=== PATIENT | male | born 1975 | race Caucasian/White ===

== ENCOUNTER 2016-04-27 17:35 | Inpatient (IN) | payer MEDICAID ==
[~2016-04-27] VITALS: Ht 190.5 cm; Wt 77.5 kg
[2016-04-27 19:26] LABS: Basophils # (auto) 0.1 uL; Basophils % (auto) 0.8 % (0.0-2.0); Eosinophils # (auto) 0.6 uL; Eosinophils % (auto) 4.8 % (0.0-7.0); Hematocrit 45.5 % (41.0-53.0); Hemoglobin 14.8 g/dL (13.5-17.5); Lymphocytes # (auto) 2.2 uL; Lymphocytes % (auto) 18.6 % (10.0-50.0); Mean Corpuscular Hemoglobin 28.3 pg (28.0-32.0); Mean Corpuscular Hgb Conc. 32.6 g/dL (32.0-36.0); Mean Corpuscular Volume 86.6 fL (80.0-100.0); Mean Platelet Volume 8.3 fL (7.4-10.4); Monocytes % (auto) 8.5 % (0.0-12.0); Neutrophils # (auto) 8.1 uL; Neutrophils % (auto) 67.3 % (37.0-80.0); Platelet Count (auto) 380 10^3/uL (140-450); Red Cell Distribution Width 14.4 % (11.6-16.0)
[2016-04-27 19:47] LABS: Albumin 3.1 g/dL (3.4-5.0); BUN/Creatinine Ratio 10.9; Calcium 8.6 mg/dL (8.5-10.1); Potassium 3.7 mmol/L (3.5-5.1)
[2016-04-27 19:50] LABS: Bilirubin, Total 0.5 mg/dL (0.2-1.0); Total Protein 7.1 g/dL (6.4-8.2)
[2016-04-27] MEDS ORDERED: ONDANSETRON HCL 4 MG/2 ML VIAL IV ONE (21:15)
[2016-04-27] MEDS ORDERED: MORPHINE SULFATE 4 MG/ML SYRG IV ONE (21:15)
[2016-04-27] MEDS: LORazepam 2MG/ML-1ML VIAL IV ONE ×2 (21:15→21:31)
[2016-04-27] MEDS ORDERED: cefTRIAXone 1GM/50ML D5W 50 ML IV ONE (23:45)
[2016-04-27] MEDS ORDERED: metroNIDAZOLE 500 MG TAB PO ONE (23:45)
[2016-04-28] VITALS (8 sets, daily range): BP systolic 98–115; BP diastolic 52–71
[2016-04-28] MEDS ORDERED: SODIUM CHLORIDE 0.9% 1,000 ML IV ONE (00:30)
[2016-04-28] MEDS ORDERED: LOPERAMIDE HCL 2 MG CAP PO ONE (00:30)
[2016-04-28] MEDS ORDERED: LOPERAMIDE HCL 2 MG CAP PO PRN (00:30)
[2016-04-28 00:54] LABS: Urine Blood Negative /uL (Negative); Urine Color Yellow (Yellow); Urine Glucose Normal (Normal); Urine Hyaline Cast MANY /lpf (0 - 2); Urine Ketone Negative (Negative); Urine Mucus FEW (None Seen); Urine Nitrite Negative (Negative); Urine RBC 1 /hpf (0 - 3); Urine Squamous Epithelial Cell FEW /hpf (<5); Urine Urobilinogen Normal (Negative)
[2016-04-28 01:33] LABS: Urine Bilirubin POSITIVE (Negative)
[2016-04-28] MEDS: metroNIDAZOLE 500MG/100ML 100 ML IV SCH ×3 (06:52→17:29)
[2016-04-28] MEDS: MORPHINE SULFATE 4 MG/ML SYRG IV PRN ×4 (07:06→21:50)
[2016-04-28] MEDS ORDERED: FAMOTIDINE 20 MG TAB PO SCH (10:00)
[2016-04-28] MEDS ORDERED: NOR5T PO (19:31)
[2016-04-28] MEDS: PANTOPRAZOLE 40 MG TAB PO SCH (21:50)
[2016-04-28] MEDS: cefTRIAXone 1GM/50ML D5W 50 ML IV SCH (21:51)
[2016-04-28] MEDS: ONDANSETRON HCL 4 MG/2 ML VIAL IV PRN (23:46)
[2016-04-29] VITALS (7 sets, daily range): BP systolic 102–146; BP diastolic 53–83
[2016-04-29] MEDS: metroNIDAZOLE 500MG/100ML 100 ML IV SCH ×4 (00:09→18:18)
[2016-04-29] MEDS ORDERED: LORazepam 2MG/ML-1ML VIAL IV PRN (01:45)
[2016-04-29] MEDS: MORPHINE SULFATE 4 MG/ML SYRG IV PRN ×6 (01:54→22:08)
[2016-04-29] MEDS: ONDANSETRON HCL 4 MG/2 ML VIAL IV PRN ×3 (04:30→22:08)
[2016-04-29 06:44] LABS: Basophils # (auto) 0 uL; Eosinophils # (auto) 0.2 uL; Eosinophils % (auto) 4.3 % (0.0-7.0); Hematocrit 39.1 % (41.0-53.0); Hemoglobin 12.7 g/dL (13.5-17.5); Lymphocytes # (auto) 0.3 uL; Lymphocytes % (auto) 4.9 % (10.0-50.0); Mean Corpuscular Hemoglobin 27.9 pg (28.0-32.0); Mean Corpuscular Hgb Conc. 32.4 g/dL (32.0-36.0); Mean Corpuscular Volume 86.2 fL (80.0-100.0); Mean Platelet Volume 8.6 fL (7.4-10.4); Monocytes # (auto) 0.4 uL; Monocytes % (auto) 6.9 % (0.0-12.0); Neutrophils # (auto) 4.7 uL; Neutrophils % (auto) 83.9 % (37.0-80.0); Platelet Count (auto) 255 10^3/uL (140-450); Red Cell Distribution Width 14.4 % (11.6-16.0); White Blood Cell 5.7 10^3/uL (4.4-10.8)
[2016-04-29 08:09] LABS: Albumin 2.5 g/dL (3.4-5.0); BUN/Creatinine Ratio 7.3; Bilirubin, Total 0.3 mg/dL (0.2-1.0); Calcium 8.3 mg/dL (8.5-10.1); Magnesium 1.7 mg/dL (1.6-2.6); Phosphorus 2.7 mg/dL (2.5-4.90); Potassium 3.4 mmol/L (3.5-5.1)
[2016-04-29] MEDS: PANTOPRAZOLE 40 MG TAB PO SCH ×2 (09:53→22:07)
[2016-04-29] MEDS ORDERED: GOLYTELY 4L KIT PO ONE (12:00)
[2016-04-29 14:51] LABS: INR 1.21 (0.9-1.15); Prothrombin Time 12.5 sec (9.37-12.3)
[2016-04-29] MEDS: cefTRIAXone 1GM/50ML D5W 50 ML IV SCH (22:07)
[2016-04-30] MEDS: metroNIDAZOLE 500MG/100ML 100 ML IV SCH ×4 (00:44→18:00)
[2016-04-30] MEDS: MORPHINE SULFATE 4 MG/ML SYRG IV PRN ×4 (02:35→17:03)
[2016-04-30 04:57] VITALS: BP 115/61
[2016-04-30] MEDS: ONDANSETRON HCL 4 MG/2 ML VIAL IV PRN ×2 (05:20→12:22)
[2016-04-30 06:31] LABS: Hematocrit 39.4 % (41.0-53.0); Hemoglobin 13.2 g/dL (13.5-17.5); Mean Corpuscular Hemoglobin 28.6 pg (28.0-32.0); Mean Corpuscular Hgb Conc. 33.6 g/dL (32.0-36.0); Mean Corpuscular Volume 85.2 fL (80.0-100.0); Mean Platelet Volume 8.2 fL (7.4-10.4); Platelet Count (auto) 249 10^3/uL (140-450); Red Cell Distribution Width 14.8 % (11.6-16.0); SUSPECT VIEW TRANSMISSION; White Blood Cell 3.4 10^3/uL (4.4-10.8)
[2016-04-30 06:53] LABS: Metamyelocytes % 0; Myelocytes % 0; Potassium 3.7 mmol/L (3.5-5.1); Promyelocytes % 0; Reactive Lymphocytes 0
[2016-04-30 07:08] LABS: BUN/Creatinine Ratio 7.7; Calcium 7.8 mg/dL (8.5-10.1); Magnesium 1.9 mg/dL (1.6-2.6)
[2016-04-30 08:00] VITALS: BP 118/76
[2016-04-30] MEDS ORDERED: SODIUM CHLORIDE LOCK 0 ML ONE (08:20)
[2016-04-30] MEDS ORDERED: MIDAZOLAM HCL 5 MG/ML-1ML VIAL ONE (08:20)
[2016-04-30] MEDS ORDERED: diphenhdrAMINE HCL 50 MG/1 ML VL ONE (08:20)
[2016-04-30] MEDS ORDERED: fentaNYL CITRATE 100 MCG/2 ML VL ONE ×2 (08:20→09:32)
[2016-04-30] MEDS ORDERED: LIDOCAINE VISCOUS 2% 15ML UD ONE (08:20)
[2016-04-30] MEDS ORDERED: FLUMAZENIL 0.1 MG/ML INJ 10ML MDV IV ONE (08:22)
[2016-04-30] MEDS ORDERED: NALOXONE HCL 0.4 MG/ML VIAL ONE (08:22)
[2016-04-30 08:57] VITALS: BP 118/76
[2016-04-30] MEDS ORDERED: LIDOCAINE HCL 2 %PF INJ 10ML AMP IJ ONE (09:32)
[2016-04-30] MEDS ORDERED: PROPOFOL 10 MG/ML 20 ML IV ONE (09:32)
[2016-04-30] MEDS ORDERED: ONDANSETRON HCL 4 MG/2 ML VIAL ONE (09:32)
[2016-04-30] MEDS ORDERED: MIDAZOLAM HCL 1MG/1ML-2 ML VIAL ONE (09:32)
[2016-04-30] MEDS: PANTOPRAZOLE 40 MG TAB PO SCH (10:00)
[2016-04-30] MEDS ORDERED: KETOROLAC TROMETH 30 MG/ML 1ML VIAL IV ONE (10:30)
[2016-04-30] MEDS ORDERED: PROMETHAZINE HCL 25 MG/ML 1ML IM ONE (10:30)
[2016-04-30] MEDS ORDERED: HYDROmorphone HCL 2 MG/ML VL IV ONE (12:00)
[2016-04-30 14:22] LABS: Platelet Estimate Adequate
[2016-04-30 14:45] VITALS: BP 111/68
[2016-04-30 16:49] VITALS: BP 104/55
[2016-04-30 18:12] VITALS: BP 104/55
[2016-05-03 02:06] LABS: Endomysial IgA Antibody Negative (Negative)
== END 2016-04-30 19:10 | disposition home or self-care (01) | DRG 241 ==
LOC: ER 17:38 → WEST WING 17:39
PROVIDERS: ADMIT Family Medicine; ATTEND Internal Medicine
PROC: 0DB68ZX Excision of Stomach, Via Natural or Artificial Opening Endoscopic, Diagnostic (ICD-10-PCS; principal; 2016-04-30 10:02)
PROC: 0DJD8ZZ Inspection of Lower Intestinal Tract, Via Natural or Artificial Opening Endoscopic (ICD-10-PCS; 2016-04-30 10:02)
DX: K29.80 Duodenitis without bleeding (principal); F11.20 Opioid dependence, uncomplicated; K92.1 Melena; Z59.0 Homelessness; K52.9 Noninfective gastroenteritis and colitis, unspecified; F12.90 Cannabis use, unspecified, uncomplicated; F17.210 Nicotine dependence, cigarettes, uncomplicated; F41.9 Anxiety disorder, unspecified; H54.0 Blindness, both eyes; N39.0 Urinary tract infection, site not specified; D72.823 Leukemoid reaction; Z71.51 Drug abuse counseling and surveillance of drug abuser; Z53.9 Procedure and treatment not carried out, unspecified reason
CPT/HCPCS: 36415; 43239; 45378; 74176; 80048; 80053; 81001; 82270; 82784; 83516; 83735; 84100; 85007; 85025; 85027; 85048; 85610; 86255; 87040; 87045; 87086; 87493; 87899; 96365; 96375; G0434; J0696; J2250; J2405; J2704; J3490

== ENCOUNTER → 2016-05-18 | Emergency (ER) | payer MEDICAID ==
[~2016-05-18] MED LIST: NOR5T PO
== END | disposition left against medical advice (07) ==
LOC: ER 19:37
DX: R11.10 Vomiting, unspecified (principal); Z53.21 Procedure and treatment not carried out due to patient leaving prior to being seen by health care provider

== ENCOUNTER 2016-05-30 22:11 | Emergency (ER) | payer MEDICAID ==
[~2016-05-30] VITALS: Ht 190.5 cm; Wt 72.1 kg
[2016-05-30 23:35] LABS: DEFINITIVE VIEW TRANSMISSION; Hematocrit 42.9 % (41.0-53.0); Hemoglobin 13.7 g/dL (13.5-17.5); Mean Corpuscular Hemoglobin 27.5 pg (28.0-32.0); Mean Corpuscular Hgb Conc. 31.9 g/dL (32.0-36.0); Mean Corpuscular Volume 86.4 fL (80.0-100.0); Mean Platelet Volume 8.3 fL (7.4-10.4); Platelet Count (auto) 334 10^3/uL (140-450); Red Cell Distribution Width 15.4 % (11.6-16.0); White Blood Cell 9.4 10^3/uL (4.4-10.8)
[2016-05-30 23:50] LABS: Albumin 2.8 g/dL (3.4-5.0); BUN/Creatinine Ratio 15.7; Bilirubin, Total 0.4 mg/dL (0.2-1.0); Calcium 8.5 mg/dL (8.5-10.1); Magnesium 1.8 mg/dL (1.6-2.6); Potassium 3.6 mmol/L (3.5-5.1)
[2016-05-30 23:59] LABS: Metamyelocytes % 0; Myelocytes % 0; Promyelocytes % 0
[2016-05-31 02:14] LABS: Hypersegmented Neutrophils Present; Large Platelets FEW; Platelet Estimate Adequa; RBC Morphology Normal; Reactive Lymphocytes 1
[2016-05-31 04:15] VITALS: BP 113/74
[2016-05-31] MEDS ORDERED: SODIUM CHLORIDE 0.9% 1,000 ML IVB ONE (04:44)
[2016-05-31] MEDS ORDERED: ONDANSETRON HCL 4 MG/2 ML VIAL IV ONE (04:45)
[2016-05-31] MEDS ORDERED: HYDROmorphone HCL 2 MG/ML VL IV ONE (04:45)
[2016-05-31 05:47] LABS: Amylase 22 U/L (25-115)
[2016-05-31 07:49] LABS: Urine Blood Negative /uL (Negative); Urine Color Yellow (Yellow); Urine Glucose Normal (Normal); Urine Ketone Negative (Negative); Urine Mucus FEW (None Seen); Urine Nitrite Negative (Negative); Urine RBC 1 /hpf (0 - 3); Urine Squamous Epithelial Cell FEW /hpf (<5); Urine Urobilinogen Normal (Negative)
[2016-05-31 07:55] LABS: Urine Bilirubin Negative (Negative)
== END 2016-05-31 06:44 | disposition home or self-care (01) ==
LOC: ER 22:48
DX: R19.7 Diarrhea, unspecified (principal); R11.10 Vomiting, unspecified; Z59.0 Homelessness; F12.10 Cannabis abuse, uncomplicated; F11.10 Opioid abuse, uncomplicated; F17.210 Nicotine dependence, cigarettes, uncomplicated
CPT/HCPCS: 36415; 80053; 81001; 82150; 83690; 83735; 85007; 85027; 96361; 96374; 96375; 99284; J1170; J2405; J7030

== ENCOUNTER 2020-02-27 18:54 | Emergency (ER) | payer MEDICAID ==
[~2020-02-27] VITALS: Ht 188 cm; Wt 81.6 kg
[~2020-02-27 18:54] MED LIST changes: +HYDR-4833 PO; -NOR5T PO
[2020-02-27 20:20] VITALS: BP 117/81
[2020-02-27] MEDS ORDERED: methylPREDNISolone SOD SUCC 125 MG/2 ML VL IM ONE (20:45)
== END 2020-02-27 22:10 | disposition home or self-care (01) ==
LOC: ER 18:54
DX: B35.4 Tinea corporis (principal); F17.210 Nicotine dependence, cigarettes, uncomplicated; Z59.0 Homelessness; Z79.899 Other long term (current) drug therapy
CPT/HCPCS: 96372; 99283; J2930